=== PATIENT | male | born 1990 ===

== ENCOUNTER 2020-09-20 18:46 | Emergency (ER) | payer OTHER ==
[~2020-09-20] VITALS: Ht 177.8 cm; Wt 84.1 kg
[2020-09-20 18:47] VITALS: BP 135/91
== END 2020-09-20 23:11 | disposition left against medical advice (07) ==
LOC: EMS 18:46
DX: R51.9 Headache, unspecified (principal); Z53.21 Procedure and treatment not carried out due to patient leaving prior to being seen by health care provider